=== PATIENT | female | born 1935 | race Caucasian/White ===

== ENCOUNTER 2022-07-28 08:27 | Day surgery (SDC) | payer OTHER ==
[~2022-07-28] VITALS: Ht 152.4 cm; Wt 66.7 kg
[2022-07-28] MEDS ORDERED: MIDAZOLAM 2 MG/2 ML VIAL ONE (10:14)
[2022-07-28] MEDS ORDERED: diphenhydrAMINE 50 MG/ML VIAL ONE (10:14)
[2022-07-28] MEDS ORDERED: fentaNYL citrate 0.05 MG/ML VIAL ONE (10:15)
[2022-07-28] MEDS: MIDAZOLAM 2 MG/2 ML VIAL IVP ONE (10:23)
[2022-07-28] MEDS: fentaNYL citrate 0.05 MG/ML VIAL IVP ONE (10:25)
[2022-07-28] MEDS: LIDOCAINE 2% 100 MG/5 ML UJET TP ONE (10:26)
== END 2022-07-28 12:15 | disposition home or self-care (01) ==
LOC: MDS 08:27 → MMU 08:28 → MDS 12:15
PROVIDERS: ATTEND Internal Medicine Gastroenterology
DX: R19.5 Other fecal abnormalities (principal); K59.00 Constipation, unspecified; D12.4 Benign neoplasm of descending colon; D12.5 Benign neoplasm of sigmoid colon; I10 Essential (primary) hypertension; E78.5 Hyperlipidemia, unspecified; K21.9 Gastro-esophageal reflux disease without esophagitis; E03.9 Hypothyroidism, unspecified; Z90.49 Acquired absence of other specified parts of digestive tract; Z79.899 Other long term (current) drug therapy; Z20.822 Contact with and (suspected) exposure to COVID-19
CPT/HCPCS: 45380; 45385; 87426; J2250; J3010; J1200